=== PATIENT | female | born 1945 | race African-American/Black ===

== ENCOUNTER 2021-11-21 07:30 | Inpatient (IN) ==
--- NOTE | 2021-11-19 15:58 | RAD ---
HISTORYPreopSTUDYChest PA and lateral [id number] appearance of moderate cardiomegaly with aortic dilatation. A focal aneurysm is not identified. The lungs and pleural spaces remain clear. There is no evidence for pneumonia.IMPRESSIONCardiomegaly with significant aortic ectasia suggesting hypertension. No acute findings.Electronically signed by: WILLIAM DARDEN (Nov 19, 2021 15:56:49)
[2021-11-21] MEDS ORDERED: NS 100 ML IV 100 ML ONE (08:34)
[2021-11-21] MEDS ORDERED: LR 1,000 ML IV 1,000 ML IV ONE ×2 (08:34→13:51)
[2021-11-21] MEDS ORDERED: CATAPRES TAB 0.1 MG ONE ×2 (08:45→09:22)
[2021-11-21 09:21] VITALS: BMI 32.1
[2021-11-21 09:27] LABS: BASOPHILS # (AUTO) 0.1 X10^3/uL (0.0-0.1); BASOPHILS % (AUTO) 0.8 % (0.2-1.0); EOSINOPHILS # (AUTO) 0.4 x10^3/uL (0.0-0.2); EOSINOPHILS % (AUTO) 5.4 % (0.9-2.9); HEMATOCRIT 30.7 % (36.0-47.0); HEMOGLOBIN 9.9 g/dL (12.0-16.0); LYMPHOCYTES # (AUTO) 1.7 X10^3/uL (1.3-2.9); LYMPHOCYTES % (AUTO) 26.1 % (21.0-51.0); MEAN CORPUSCULAR HEMOGLOBIN 25.7 pg (27.0-34.0); MEAN CORPUSCULAR HGB CONC 32.3 g/dL (33.0-35.0); MEAN CORPUSCULAR VOLUME 79.6 fL (80.0-100.0); MEAN PLATELET VOLUME 9.7 fL (7.4-11.0); MONOCYTES # (AUTO) 0.8 x10^3/uL (0.3-0.8); MONOCYTES % (AUTO) 12.1 % (0.0-13.0); NEUTROPHILS # (AUTO) 3.6 x10^3/uL (2.2-4.8); NEUTROPHILS % (AUTO) 55.6 % (42.0-75.0); RED BLOOD COUNT 3.86 X10^6/uL (3.5-5.4); RED CELL DISTRIBUTION WIDTH 16.1 % (11.6-16.5); WHITE BLOOD COUNT 6.5 X10^3/uL (3.6-10.0)
[2021-11-21 09:43] LABS: ALANINE AMINOTRANSFERASE 28 Units/L (12-78); ALBUMIN 3.2 g/dL (3.4-5.0); ALKALINE PHOSPHATASE 146 Units/L (46-116); ASPARTATE AMINO TRANSFERASE 33 Units/L (15-37); BLOOD UREA NITROGEN 41 mg/dL (7-18); CALCIUM 8.8 mg/dL (8.5-10.1); CARBON DIOXIDE 21.9 mmol/L (21-32); CHLORIDE 111 mmol/L (98-107); COR CA(FOR HYPOALB) 9.4 mg/dL (8.5-10.1); CREATININE 2.47 mg/dL (0.55-1.02); SODIUM 142 mmol/L (136-145); TOTAL PROTEIN 6.9 g/dL (6.4-8.2); eGFR NON BLACK RACES 20 (>60)
[2021-11-21] MEDS ORDERED: NS 500 ML IV 500 ML IV ONE ×2 (10:00→11:28)
[2021-11-21] MEDS ORDERED: XYLOCAINE 1 % (PLAIN) ONE (10:08)
[2021-11-21] MEDS ORDERED: AMIDATE INJ 40 MG VIAL ONE (10:54)
[2021-11-21] MEDS ORDERED: FENTANYL VIAL INJ 100 mcg ONE (10:59)
[2021-11-21] MEDS ORDERED: QUELICIN (OR ANECTINE) ONE (11:01)
[2021-11-21] MEDS ORDERED: ZEMURON 100 MG VIAL ONE (11:02)
[2021-11-21] MEDS ORDERED: NEO-SYNEPHRINE INJ ONE (11:03)
[2021-11-21] MEDS ORDERED: APRESOLINE INJ 20 MG VIAL ONE ×2 (11:20)
[2021-11-21] MEDS ORDERED: MARCAINE 0.5% ONE (12:09)
[2021-11-21] MEDS ORDERED: HEPARIN SODIUM IN D5W 75,000 UNITS/1,500 ML BAG ONE (12:09)
[2021-11-21] MEDS ORDERED: ULTANE GAS IN ONE (12:19)
[2021-11-21] MEDS ORDERED: BREVIBLOC ONE (13:27)
[2021-11-21] MEDS ORDERED: HEPARIN SODIUM INJ 5000 UNITS ONE ×2 (13:33→13:34)
[2021-11-21] MEDS ORDERED: PROTAMINE SULFATE 50 MG VIAL ONE (13:34)
--- NOTE | 2021-11-21 15:17 | OR.IMMED ---
IMMEDIATE POST-OP NOTE Immediate Post-Op Note Pre-Op Diagnosis: Abdominal aortic aneurysm, bilateral common iliac artery aneur ysms Post-Op Diagnosis: same Procedure: bilateral femoral artery cut down and endovascular bi-iliac graft placement Description of Procedure: see operative summary Surgeon/[employer] Teacher: Jailyn Findings: abdominal aortic aneurysm was larger than 5 cm which is markedly change from previous studies ,bilateral common iliac artery aneurysm Estimated Blood Loss: 300 cc Complications: none Post Hospital Plans and Medications: Patient will be placed in the ICU for control of blood pressure, control of pain and monitoring of the groin incisions. Final Diagnosis: as above
[2021-11-21] MEDS ORDERED: BARHEMSYS INJ IVP PRN (15:22)
[2021-11-21] MEDS ORDERED: REGLAN INJ 10 MG VIAL IVP PRN (15:22)
[2021-11-21] MEDS ORDERED: PHENERGAN INJ 25 MG IM PRN (15:22)
[2021-11-21] MEDS ORDERED: ZOFRAN INJ 4 MG VIAL IVP PRN (15:22)
[2021-11-21] MEDS ORDERED: BENADRYL INJ 50 MG VIAL IVP PRN (15:22)
[2021-11-21] MEDS ORDERED: DILAUDID INJ IVP PRN (15:22)
[2021-11-21] MEDS ORDERED: DILAUDID INJ ONE (15:34)
[2021-11-21] MEDS: LR 1,000 ML IV 1,000 ML IV SCH (16:44)
[2021-11-21] MEDS: DILAUDID INJ IVP PRN ×2 (17:25→21:08)
[2021-11-21 19:44] LABS: BASOPHILS # (AUTO) 0.1 X10^3/uL (0.0-0.1); BASOPHILS % (AUTO) 0.5 % (0.2-1.0); EOSINOPHILS # (AUTO) 0.2 x10^3/uL (0.0-0.2); EOSINOPHILS % (AUTO) 1.8 % (0.9-2.9); HEMOGLOBIN 9.7 g/dL (12.0-16.0); LYMPHOCYTES # (AUTO) 1.6 X10^3/uL (1.3-2.9); LYMPHOCYTES % (AUTO) 12.6 % (21.0-51.0); MEAN CORPUSCULAR HEMOGLOBIN 25.2 pg (27.0-34.0); MEAN CORPUSCULAR HGB CONC 31.5 g/dL (33.0-35.0); MEAN CORPUSCULAR VOLUME 80.3 fL (80.0-100.0); MEAN PLATELET VOLUME 9.4 fL (7.4-11.0); MONOCYTES % (AUTO) 8.1 % (0.0-13.0); RED BLOOD COUNT 3.86 X10^6/uL (3.5-5.4); RED CELL DISTRIBUTION WIDTH 16.1 % (11.6-16.5); WHITE BLOOD COUNT 12.9 X10^3/uL (3.6-10.0)
[2021-11-21] MEDS: CARDENE IV PREMIX* 40 MG/200 ML 40 MG/200 ML PIGGYBACK IV PRN (22:00)
--- NOTE | 2021-11-22 00:05 | NOTE.SOAP ---
Soap Note Note for Day of Date of Exam: 11/21/21 Subjective Data Subjective Data: Earlier today underwent endo-vascular repair of abdominal aortic aneurysm and bilateral common iliac artery aneurysms. Patient has done well. She has been hypertensive both pre-op and post-procedure and is currently on a Cardene drip . Objective Data Temperature: 99.1 F Pulse Rate: 64 Respiratory Rate: 15 Blood Pressure: 160/66 O2 Sat by Pulse Oximetry: 100 Objective Data: Awake and alert. Has taken some sips clear liquids. Good urine output. Post- procedure hemoglobin 9.7 and was 9.9 pre-op today. Has elevated creatinine pre- op. Both feet are warm Assessment Assessment: status post endovascular repair of abdominal aortic aneurysm and bilateral common iliac artery aneurysms ,doing well Plan Plan: Continue to wean Cardene drip. Advance to regular diet in the morning. AM labs. Continue IV hydration .
[2021-11-22] MEDS: DILAUDID INJ IVP PRN ×3 (00:08→14:09)
[2021-11-22] MEDS: LR 1,000 ML IV 1,000 ML IV SCH ×4 (00:50→19:16)
[2021-11-22] MEDS: CARDENE IV PREMIX* 40 MG/200 ML 40 MG/200 ML PIGGYBACK IV PRN (03:55)
[2021-11-22 06:25] LABS: BASOPHILS % (AUTO) 0.3 % (0.2-1.0); EOSINOPHILS # (AUTO) 0.1 x10^3/uL (0.0-0.2); EOSINOPHILS % (AUTO) 0.5 % (0.9-2.9); HEMATOCRIT 27.4 % (36.0-47.0); HEMOGLOBIN 8.6 g/dL (12.0-16.0); LYMPHOCYTES % (AUTO) 6.9 % (21.0-51.0); MEAN CORPUSCULAR HGB CONC 31.3 g/dL (33.0-35.0); MEAN CORPUSCULAR VOLUME 79.9 fL (80.0-100.0); MEAN PLATELET VOLUME 9.1 fL (7.4-11.0); MONOCYTES # (AUTO) 1.3 x10^3/uL (0.3-0.8); MONOCYTES % (AUTO) 9.5 % (0.0-13.0); NEUTROPHILS # (AUTO) 11.5 x10^3/uL (2.2-4.8); NEUTROPHILS % (AUTO) 82.8 % (42.0-75.0); RED BLOOD COUNT 3.42 X10^6/uL (3.5-5.4); WHITE BLOOD COUNT 13.9 X10^3/uL (3.6-10.0)
[2021-11-22 06:37] LABS: ALANINE AMINOTRANSFERASE 25 Units/L (12-78); ALBUMIN 2.8 g/dL (3.4-5.0); ALKALINE PHOSPHATASE 128 Units/L (46-116); ASPARTATE AMINO TRANSFERASE 50 Units/L (15-37); BLOOD UREA NITROGEN 47 mg/dL (7-18); CALCIUM 8.4 mg/dL (8.5-10.1); CHLORIDE 111 mmol/L (98-107); COR CA(FOR HYPOALB) 9.4 mg/dL (8.5-10.1); CREATININE 3.25 mg/dL (0.55-1.02); SODIUM 140 mmol/L (136-145); TOTAL PROTEIN 6.1 g/dL (6.4-8.2); eGFR NON BLACK RACES 15 (>60)
[2021-11-22] MEDS ORDERED: COREG TAB 12.5 MG PO SCH (09:00)
[2021-11-22] MEDS ORDERED: LASIX IVP SCH (09:00)
[2021-11-22] MEDS ORDERED: LOPRESSOR TAB 50 MG PO SCH (09:00)
[2021-11-22] MEDS ORDERED: ALDACTONE TAB 25 MG PO SCH (09:00)
[2021-11-22] MEDS: NORMODYNE TAB 200 MG PO SCH ×3 (09:28→21:18)
[2021-11-22] MEDS: PERCOCET TAB 5/325 MG PO PRN ×2 (09:49→21:00)
--- NOTE | 2021-11-22 17:03 | DR.OPNOTE ---
OP NOTE Pre-Op Diagnosis: 5 cm AAA, 3 cm left iliac artery aneurysm, 2.3 cmright iliac artery aneurys Post-Op Diagnosis: same Procedure Date Date Of Procedure: 11/21/21 Procedure: PROCEDURE: ENDOVASCULAR AORTO-BIILIAC ENDOGRADFT REPAIR OF ABDOMINAL AORTIC ANEURYSM AND BILATERAL COMMON ILIAC ARTERY ANEURYSMS NARRATIVE : The patient was taken to the operative Suite, placed in supine position and general endotracheal anesthesia induced. The entire abdomen and both groins prepped and draped in sterile fashion. Time out for the procedure obtained. Vertical incision was made in the right groin and sharp dissection performed to expose the common femoral artery, superficial femoral artery and the profunda femoris artery of the right groin .Vessel loops placed around all these arteries On placing the right angle clamp around the right profunda a small tear occurred required suture repair with running 5-0 Prolene suture . There was no further bleeding. Vertical incision made in the left groin and sharp dissection carried out to expose the common femoral artery, superficial femoral artery and profunda femoris artery . All had vessel loops placed around them. Purse string sutures of 5-0 Prolene sutures placed in both common femoral arteries. 16 gauge needle used to puncture the right femoral artery through the purse string and a 0. 035 inch Advantage glide wire placed. 16 gauge needle use to puncture in the middle of the purse string suture of the left femoral artery and a 0. 035 inch Advantage glide wire placed. Patient was given 5,000 units of intravenous heparin. On the left side we placed an Omni catheter over the guide wire and diagnostic aortogram performed showing the aneurysm to have increased in size and was approximately 5 cm in diameter and with significant bilateral common iliac artery aneurysms. On the right side the Advantage glide wire exchanged for 0. 035 inch Amplatz stiff wire. The Advantage glide wire on the right was exchanged for a 0.035 inch Amplatz wire using the [employer] catheter and the body of the aortic bifurcated aortic graft measuring 28 by 14 by 103 mm placed over the right Amplatz wire and positioned below the renal arteries and above the neck of the aneurysm just below both renal arteries. The main body was positioned and then opened and deployed. From the left side I placed an Apt[employer]ing[employer] Roofer device and used it and the Amplatz wire to capture the [place] of the left side. I placed the Omni catheter over the guide wire into the body of the aortic graft and pulled back on the wire and was able to twirl the Omni catheter confirming that we were indeed inside the aortic graft main body . Over the Amplatz guide wire on the left side we then placed a 16 mm by 24 mm by 124 mmgraft limb extension and deployed with overlap through the gate on left side. On the right side we placed a contra limb measuring 16 mm by 10 mm by 156 mm limb extension and also deployed it. Diagnostic arteriogram had been carried out of both iliac arteries confirming the extent of the common iliac artery aneurysms. When this was done we placed a balloon up on the left side and performed balloon dilation of the main body of the aortic graft and the left limb . We then placed the balloon up on the right side and ballooned open the right limb of the graft . Post procedure aortogram performed using the Omni catheter above the graft showed excellent result with no leak and good flow into the iliac vessels. A 12 [place] sheath had been placed upon the right side after deploying the limb extension and a 16 [place] sheath had been placed on the right side after deploying the main body of the graft . Patient required no reversal of the heparin .Devices through the sheaths were removed bilaterally . Sheath on the right side removed and the common femoral artery clamped with a Statinsky clamp and the purse string suture tied down and small leak closed additionally with running 5-0 Prolene stopping any bleeding. Identically on the left side the sheath removed and the purse string tied in to position and 5-0 Prolene used to control any other bleeding .No further bleeding noted from either groin . Both groins closed with running 3-0 Vicryl suture in two layers and skin closed with cydney. The patient tolerated he procedure well and was taken to the recovery room after extubation. Type of Anesthesia: General Anesthetic w/ETT Findings: As above , persistent hypertension requiring treatment post -op with IV Cardene Specimen/Pathology: none Type of Fluids Used:: Lactated Ringers Total Amount of Fluid Infused:: 1450 CC EBL: 300 cc Complications:: none Needle/Sponge Count:: correct Disposition/Condition: Pt. tolerated procedure without difficulty. Extubated in the OR and taken to PACU in stable condition.
[2021-11-22] MEDS: REQUIP PO SCH (20:43)
[2021-11-22] MEDS: XARELTO PO SCH (20:43)
[2021-11-22] MEDS: ZOFRAN INJ 4 MG VIAL IVP PRN (22:30)
[2021-11-22] MEDS ORDERED: ZOFRAN INJ 4 MG VIAL ONE (22:33)
--- NOTE | 2021-11-22 23:39 | NOTE.SOAP ---
Soap Note Note for Day of Date of Exam: 11/22/21 Subjective Data Subjective Data: POD # 1 after endovascular repair of AAA and b/l common iliac artery aneurysms. Has required Cardene drip to control BP now weaned off. Her family does not think she is taking her BP medications correctly. Good urine output. C/O pain in groins as expected. Creatinine has risen> 3 , and Hgb = 8.6 this AM. Had some nausea this AM which is resolved. Objective Data Temperature: 100 F Pulse Rate: 75 Respiratory Rate: 22 Blood Pressure: 160/69 Objective Data: Warm feet b/l. Groins dressings dry with no swelling. labsa as above Assessment Assessment: S/p endovascular repair of AAA and b/l iliac artery aneurysms. BP under better control. Will continue po medications . Monitor Hgb. Monitor creatinine. Hold diuretics for now . Tolerating diet after some initial nausea. Plan Plan: As above. Leave Hannah in place for now .
[2021-11-23] MEDS: CATAPRES TAB 0.1 MG PO PRN ×2 (00:12→20:49)
[2021-11-23] MEDS: LR 1,000 ML IV 1,000 ML IV SCH (01:37)
[2021-11-23] MEDS: DILAUDID INJ IVP PRN (02:00)
[2021-11-23 05:05] LABS: BLOOD UREA NITROGEN 57 mg/dL (7-18); CALCIUM 8.6 mg/dL (8.5-10.1); CARBON DIOXIDE 19.9 mmol/L (21-32); CHLORIDE 109 mmol/L (98-107); CREATININE 3.81 mg/dL (0.55-1.02); SODIUM 140 mmol/L (136-145); eGFR NON BLACK RACES 12 (>60)
[2021-11-23 05:09] LABS: BASOPHILS # (AUTO) 0.1 X10^3/uL (0.0-0.1); BASOPHILS % (AUTO) 0.4 % (0.2-1.0); EOSINOPHILS # (AUTO) 0.1 x10^3/uL (0.0-0.2); EOSINOPHILS % (AUTO) 0.5 % (0.9-2.9); HEMATOCRIT 25.8 % (36.0-47.0); HEMOGLOBIN 8.3 g/dL (12.0-16.0); LYMPHOCYTES # (AUTO) 1.2 X10^3/uL (1.3-2.9); LYMPHOCYTES % (AUTO) 6.6 % (21.0-51.0); MEAN CORPUSCULAR HEMOGLOBIN 25.3 pg (27.0-34.0); MEAN CORPUSCULAR HGB CONC 32.1 g/dL (33.0-35.0); MEAN CORPUSCULAR VOLUME 78.9 fL (80.0-100.0); MEAN PLATELET VOLUME 9.3 fL (7.4-11.0); MONOCYTES # (AUTO) 1.8 x10^3/uL (0.3-0.8); MONOCYTES % (AUTO) 9.8 % (0.0-13.0); NEUTROPHILS # (AUTO) 14.8 x10^3/uL (2.2-4.8); NEUTROPHILS % (AUTO) 82.7 % (42.0-75.0); RED BLOOD COUNT 3.27 X10^6/uL (3.5-5.4); RED CELL DISTRIBUTION WIDTH 16.1 % (11.6-16.5); WHITE BLOOD COUNT 17.9 X10^3/uL (3.6-10.0)
[2021-11-23 06:09] LABS: BAND NEUTROPHILS % 2 % (0-10); PLATELET MORPHOLOGY COMMENT NORMAL (NORMAL)
[2021-11-23 06:10] LABS: HYPOCHROMASIA SLIGHT; MICROCYTOSIS SLIGHT
[2021-11-23] MEDS: NORMODYNE TAB 200 MG PO SCH ×3 (06:25→21:27)
[2021-11-23] MEDS: ASPIRIN EC 81 MG PO SCH (09:11)
[2021-11-23] MEDS: XARELTO PO SCH ×2 (09:11→20:50)
[2021-11-23] MEDS: NS 1,000 ML IV 1,000 ML IV SCH (09:11)
[2021-11-23] MEDS: REQUIP PO SCH (20:50)
[2021-11-23] MEDS: PERCOCET TAB 5/325 MG PO PRN (21:30)
[2021-11-23] MEDS: ZOFRAN INJ 4 MG VIAL IVP PRN (21:31)
[2021-11-24] MEDS: NS 1,000 ML IV 1,000 ML IV SCH ×3 (02:03→21:37)
[2021-11-24 05:09] LABS: ALANINE AMINOTRANSFERASE 28 Units/L (12-78); ALBUMIN 2.1 g/dL (3.4-5.0); ALKALINE PHOSPHATASE 104 Units/L (46-116); ASPARTATE AMINO TRANSFERASE 44 Units/L (15-37); BLOOD UREA NITROGEN 63 mg/dL (7-18); CALCIUM 8.2 mg/dL (8.5-10.1); CARBON DIOXIDE 19.8 mmol/L (21-32); CHLORIDE 110 mmol/L (98-107); COR CA(FOR HYPOALB) 9.7 mg/dL (8.5-10.1); CREATININE 3.98 mg/dL (0.55-1.02); SODIUM 139 mmol/L (136-145); TOTAL PROTEIN 5.5 g/dL (6.4-8.2); eGFR NON BLACK RACES 12 (>60)
[2021-11-24 05:12] LABS: BASOPHILS % (AUTO) 0.4 % (0.2-1.0); EOSINOPHILS # (AUTO) 0.2 x10^3/uL (0.0-0.2); EOSINOPHILS % (AUTO) 1.5 % (0.9-2.9); HEMATOCRIT 22.5 % (36.0-47.0); HEMOGLOBIN 7.2 g/dL (12.0-16.0); LYMPHOCYTES # (AUTO) 1.3 X10^3/uL (1.3-2.9); LYMPHOCYTES % (AUTO) 10.2 % (21.0-51.0); MEAN CORPUSCULAR HEMOGLOBIN 25.3 pg (27.0-34.0); MEAN CORPUSCULAR HGB CONC 32.1 g/dL (33.0-35.0); MEAN CORPUSCULAR VOLUME 78.7 fL (80.0-100.0); MEAN PLATELET VOLUME 9.3 fL (7.4-11.0); MONOCYTES # (AUTO) 1.2 x10^3/uL (0.3-0.8); MONOCYTES % (AUTO) 9.2 % (0.0-13.0); NEUTROPHILS % (AUTO) 78.7 % (42.0-75.0); RED BLOOD COUNT 2.86 X10^6/uL (3.5-5.4); WHITE BLOOD COUNT 12.7 X10^3/uL (3.6-10.0)
[2021-11-24] MEDS: NORMODYNE TAB 200 MG PO SCH ×3 (05:40→21:23)
[2021-11-24] MEDS: ASPIRIN EC 81 MG PO SCH (08:51)
[2021-11-24] MEDS: XARELTO PO SCH ×2 (08:52→20:54)
[2021-11-24] MEDS: DILAUDID INJ IVP PRN ×2 (09:03→14:13)
[2021-11-24] MEDS ORDERED: NS 500 ML IV 500 ML IV ONE (10:46)
--- NOTE | 2021-11-24 12:27 | NOTE.SOAP ---
Soap Note Note for Day of Date of Exam: 11/23/21 Subjective Data Subjective Data: Patient seen twice by me yesterday but no note written. Patient doing better. She was to begin physical therapy to help with a walker but they were not available. Objective Data Temperature: 99.3 F Pulse Rate: 80 Respiratory Rate: 18 Blood Pressure: 141/61 O2 Sat by Pulse Oximetry: 97 Objective Data: Both feet warm. Dressings in each groin intact with no blood staining or hematoma.Acid urine output abdomen soft and benign. White blood cell count 17. 9, platlet count 139,000, hemoglobin 8. 3 , potassium 5. 6, creatinine3.83, BUN 57 Assessment Assessment: continues to do well after endovascular repair of abdominal aortic aneurysm and bilateral iliac srtery aneurysms . Creatinine has risen but appears to be plateauing and with good urine output. This will need to be followed. She is followed by a promotional advertising assistant regularly. Her blood pressure remains elevated and we will need to treat that with her usual home medications. Check labs in the A. M. If stable may discharge . Plan Plan: See assessment above
--- NOTE | 2021-11-24 15:38 | NOTE.SOAP ---
Soap Note Note for Day of Date of Exam: 11/24/21 Subjective Data Subjective Data: POD # 3 after endovascular repair of AAA and bilateral iliac artery aneurysms. Much more active. Participating well with PT. Using walker well. HgB decreased to 7.2 Will plan transfusion of 2 units PRBCs . Still with adequate urine output and creatinine has nearly peaked . Bp still elevated intermittently. Eating better. Objective Data Temperature: 100.0 F Pulse Rate: 80 Respiratory Rate: 21 Blood Pressure: 159/68 O2 Sat by Pulse Oximetry: 96 Objective Data: As above , Incisions both groins clean and dry. Both feet warm. Assessment Assessment: POD # 3 after surgery, Plan Plan: Plan transfusion 2 units PRBCs, D/C Hannah. Labs in AM . Probably home tomorrow. Will see in office 1st of next week and check labs. If creatinine not coming back will refer to her thermostatic controls supervisor , Dr. Castillo.
[2021-11-24] MEDS ORDERED: BENADRYL INJ 50 MG VIAL IVP ONE (19:30)
[2021-11-24 19:36] LABS: HEMATOCRIT 29.5 % (36.0-47.0); HEMOGLOBIN 9.9 g/dL (12.0-16.0)
[2021-11-24] MEDS: ZOFRAN INJ 4 MG VIAL IVP PRN (20:20)
[2021-11-24] MEDS: PERCOCET TAB 5/325 MG PO PRN (20:20)
[2021-11-24] MEDS: REQUIP PO SCH (20:54)
[2021-11-24] MEDS ORDERED: VISTARIL PO PRN (22:07)
[2021-11-24] MEDS: LR 1,000 ML IV 1,000 ML IV SCH (22:50)
[2021-11-25] MEDS: NS 1,000 ML IV 1,000 ML IV SCH (00:15)
[2021-11-25] MEDS: PERCOCET TAB 5/325 MG PO PRN ×3 (00:18→09:11)
[2021-11-25] MEDS ORDERED: BENADRYL CAP/TAB 25 MG PO PRN (01:30)
[2021-11-25] MEDS: NORMODYNE TAB 200 MG PO SCH (05:20)
[2021-11-25 05:56] LABS: BASOPHILS # (AUTO) 0.1 X10^3/uL (0.0-0.1); BASOPHILS % (AUTO) 0.5 % (0.2-1.0); EOSINOPHILS # (AUTO) 0.4 x10^3/uL (0.0-0.2); EOSINOPHILS % (AUTO) 3.9 % (0.9-2.9); HEMATOCRIT 30.4 % (36.0-47.0); HEMOGLOBIN 10.1 g/dL (12.0-16.0); LYMPHOCYTES # (AUTO) 1.4 X10^3/uL (1.3-2.9); LYMPHOCYTES % (AUTO) 12.2 % (21.0-51.0); MEAN CORPUSCULAR HEMOGLOBIN 26.6 pg (27.0-34.0); MEAN CORPUSCULAR HGB CONC 33.3 g/dL (33.0-35.0); MEAN CORPUSCULAR VOLUME 79.9 fL (80.0-100.0); MEAN PLATELET VOLUME 9.2 fL (7.4-11.0); MONOCYTES # (AUTO) 1.3 x10^3/uL (0.3-0.8); NEUTROPHILS % (AUTO) 71.4 % (42.0-75.0); RED CELL DISTRIBUTION WIDTH 15.6 % (11.6-16.5); WHITE BLOOD COUNT 11.2 X10^3/uL (3.6-10.0)
[2021-11-25 06:03] LABS: BLOOD UREA NITROGEN 64 mg/dL (7-18); CALCIUM 8.4 mg/dL (8.5-10.1); CARBON DIOXIDE 20.2 mmol/L (21-32); CHLORIDE 110 mmol/L (98-107); CREATININE 3.74 mg/dL (0.55-1.02); SODIUM 139 mmol/L (136-145); eGFR NON BLACK RACES 13 (>60)
[2021-11-25] MEDS ORDERED: MILK OF MAGNESIA PO SCH (09:00)
[2021-11-25] MEDS: XARELTO PO SCH (09:11)
[2021-11-25] MEDS: ASPIRIN EC 81 MG PO SCH (09:11)
[2021-11-25 09:30] VITALS: BP 162/71
--- NOTE | 2021-11-25 10:45 | W.DIS.FURT ---
Summary of Discharge Discharge Summary of Date Date of Exam: 11/25/21 Admission Date Date of Admission: 11/21/21 Admission Diagnosis Hospital Course: 76 year old female with history of coronary artery disease who has had a bilateral peripheral artery interventions of both lower extremities for rest pain and she was noted to have a 4. 4 CM abdominal aortic aneurysm, 3. 1 CM left common iliac artery aneurysm and 2. 3 CM right common iliac artery aneurysm. After evaluation of her coronary artery disease and arterial intervention of both legs she was admitted on November 21 where she underwent an uncomplicated aorta bi-iliac endovascular repair via incisions in each groin . She has a history of hypertension which has been difficult to control and has had borderline renal function in the past. Post-procedure her creatinine increased to 3. 9 but it is coming down with re-hydration and is now 3.7. Other chemistries are within normal limits. Her hemoglobin dropped post- procedure slowly over several days to 7. 2 No obvious signs of bleeding .She received 2 units of packed RBCs and her Hgb is 10.1 on discharge. She has been getting around with a walker and has been instructed with physical therapy. She will be discharged to home and follow up with me on November 29. At that time we will repeat laboratory values to evaluate her kidneys and her hemoglobin. She be discharged home on her usual medications including Plavix, her blood pressure medicines, daily baby aspirin and Percocet 5 mg tablets, one every six hours pure in pain. Vital Signs: Vital Signs (72 hours) 11/22/21 23:39 11/24/21 12:32 11/24/21 15:38 Temperature 100 F H 99.3 F 100.0 F H Pulse Rate 75 80 80 Respiratory Rate 22 18 21 Blood Pressure 160/69 141/61 159/68 O2 Sat by Pulse Oximetry 97 96 Oxygen Delivery Method Oxygen Flow Rate FIO2% 11/22/21 10:48 11/22/21 11:00 11/22/21 11:00 Temperature Pulse Rate 85 Respiratory Rate 22 16 Blood Pressure 157/69 O2 Sat by Pulse Oximetry 98 Oxygen Delivery Method Oxygen Flow Rate FIO2% 11/22/21 12:15 11/22/21 12:15 11/22/21 13:00 Temperature 98.7 F Pulse Rate 84 Respiratory Rate 20 Blood Pressure 180/78 170/74 O2 Sat by Pulse Oximetry 98 Oxygen Delivery Method Oxygen Flow Rate FIO2% 11/22/21 13:00 11/22/21 14:09 11/22/21 13:30 Temperature Pulse Rate 86 Respiratory Rate 23 19 Blood Pressure 165/73 O2 Sat by Pulse Oximetry 99 Oxygen Delivery Method Oxygen Flow Rate FIO2% 11/22/21 13:30 11/22/21 14:15 11/22/21 14:15 Temperature Pulse Rate 84 71 Respiratory Rate 21 15 Blood Pressure 137/63 O2 Sat by Pulse Oximetry 99 99 Oxygen Delivery Method Oxygen Flow Rate FIO2% 11/22/21 14:39 11/22/21 15:00 11/22/21 15:00 Temperature Pulse Rate 72 Respiratory Rate 22 24 Blood Pressure 144/65 O2 Sat by Pulse Oximetry 99 Oxygen Delivery Method Oxygen Flow Rate FIO2% 11/22/21 16:00 11/22/21 16:00 11/22/21 17:00 Temperature 98.5 F Pulse Rate 74 Respiratory Rate 23 Blood Pressure 158/72 187/79 O2 Sat by Pulse Oximetry 100 Oxygen Delivery Method Oxygen Flow Rate FIO2% 11/22/21 17:00 11/22/21 18:00 11/22/21 18:00 Temperature Pulse Rate 78 79 Respiratory Rate 35 H 21 Blood Pressure 181/77 O2 Sat by Pulse Oximetry 100 100 Oxygen Delivery Method Oxygen Flow Rate FIO2% 11/22/21 19:00 11/22/21 20:00 11/22/21 19:00 Temperature 100.0 F H Pulse Rate 75 79 Respiratory Rate 22 29 H Blood Pressure 173/73 173/71 O2 Sat by Pulse Oximetry 100 100 Oxygen Delivery Method Nasal Cannula Nasal Cannula Nasal Cannula Oxygen Flow Rate 2 2 2 FIO2% 11/22/21 21:00 11/22/21 21:13 11/22/21 21:00 Temperature Pulse Rate 80 Respiratory Rate 29 H 22 Blood Pressure 174/76 O2 Sat by Pulse Oximetry 99 Oxygen Delivery Method Nasal Cannula Nasal Cannula Oxygen Flow Rate 2 2 FIO2% 28 11/22/21 22:00 11/22/21 21:30 11/22/21 22:00 Temperature Pulse Rate 77 75 Respiratory Rate 21 23 22 Blood Pressure 168/71 163/71 O2 Sat by Pulse Oximetry 100 100 Oxygen Delivery Method Nasal Cannula Nasal Cannula Oxygen Flow Rate 2 2 FIO2% 11/22/21 22:30 11/22/21 23:00 11/23/21 00:00 Temperature 100.0 F H Pulse Rate 75 82 Respiratory Rate 28 H 22 Blood Pressure 158/65 160/69 177/74 O2 Sat by Pulse Oximetry 97 97 Oxygen Delivery Method Room Air Room Air Oxygen Flow Rate FIO2% 11/23/21 00:30 11/23/21 02:00 11/23/21 01:00 Temperature Pulse Rate 81 Respiratory Rate 20 20 Blood Pressure 167/74 185/75 O2 Sat by Pulse Oximetry 97 Oxygen Delivery Method Room Air Oxygen Flow Rate FIO2% 11/23/21 02:00 11/23/21 02:30 11/23/21 03:00 Temperature Pulse Rate 77 78 Respiratory Rate 20 20 17 Blood Pressure 157/67 162/70 O2 Sat by Pulse Oximetry 97 97 Oxygen Delivery Method Room Air Room Air Oxygen Flow Rate FIO2% 11/23/21 04:00 11/23/21 05:00 11/23/21 05:34 Temperature 99.9 F H Pulse Rate 79 76 Respiratory Rate 17 19 Blood Pressure 179/76 168/67 166/69 O2 Sat by Pulse Oximetry 97 97 Oxygen Delivery Method Room Air Room Air Oxygen Flow Rate FIO2% 11/23/21 06:00 11/23/21 07:00 11/23/21 07:00 Temperature Pulse Rate 81 Respiratory Rate 19 Blood Pressure 141/61 174/70 O2 Sat by Pulse Oximetry 96 Oxygen Delivery Method Room Air Nasal Cannula Oxygen Flow Rate 2 FIO2% 11/23/21 07:00 11/23/21 08:00 11/23/21 08:00 Temperature 99.3 F Pulse Rate 80 88 Respiratory Rate 18 26 H Blood Pressure 156/117 O2 Sat by Pulse Oximetry 97 97 Oxygen Delivery Method Oxygen Flow Rate FIO2% 11/23/21 08:30 11/23/21 08:31 11/23/21 08:31 Temperature Pulse Rate 73 72 Respiratory Rate 19 19 Blood Pressure 106/53 O2 Sat by Pulse Oximetry 97 97 Oxygen Delivery Method Oxygen Flow Rate FIO2% 11/23/21 09:00 11/23/21 09:00 11/23/21 09:34 Temperature Pulse Rate 71 Respiratory Rate 19 Blood Pressure 127/57 O2 Sat by Pulse Oximetry 97 Oxygen Delivery Method Room Air Oxygen Flow Rate 2 FIO2% 28 11/23/21 10:00 11/23/21 10:00 11/23/21 11:01 Temperature Pulse Rate 73 Respiratory Rate 19 Blood Pressure 133/55 139/60 O2 Sat by Pulse Oximetry 98 Oxygen Delivery Method Oxygen Flow Rate FIO2% 11/23/21 11:01 11/23/21 12:00 11/23/21 12:01 Temperature 99.7 F H Pulse Rate 76 77 Respiratory Rate 23 22 Blood Pressure 158/69 O2 Sat by Pulse Oximetry 97 98 Oxygen Delivery Method Oxygen Flow Rate FIO2% 11/23/21 13:01 11/23/21 13:01 11/23/21 14:01 Temperature Pulse Rate 79 Respiratory Rate 23 Blood Pressure 156/65 145/65 O2 Sat by Pulse Oximetry 98 Oxygen Delivery Method Oxygen Flow Rate FIO2% 11/23/21 14:01 11/23/21 15:00 11/23/21 15:00 Temperature Pulse Rate 78 75 Respiratory Rate 24 21 Blood Pressure 139/59 O2 Sat by Pulse Oximetry 97 97 Oxygen Delivery Method Oxygen Flow Rate FIO2% 11/23/21 16:00 11/23/21 16:01 11/23/21 17:01 Temperature 100.3 F H Pulse Rate 80 Respiratory Rate 31 H Blood Pressure 146/111 122/56 O2 Sat by Pulse Oximetry 97 Oxygen Delivery Method Oxygen Flow Rate FIO2% 11/23/21 17:01 11/23/21 18:01 11/23/21 18:01 Temperature Pulse Rate 78 78 Respiratory Rate 31 H 38 H Blood Pressure 138/62 O2 Sat by Pulse Oximetry 97 98 Oxygen Delivery Method Oxygen Flow Rate FIO2% 11/23/21 21:30 11/23/21 19:00 11/23/21 19:00 Temperature Pulse Rate 80 Respiratory Rate 20 25 H Blood Pressure O2 Sat by Pulse Oximetry 97 Oxygen Delivery Method Nasal Cannula Oxygen Flow Rate 2 FIO2% 11/23/21 19:01 11/23/21 19:01 11/23/21 19:30 Temperature Pulse Rate 79 79 Respiratory Rate 25 H 24 Blood Pressure 155/65 O2 Sat by Pulse Oximetry 98 97 Oxygen Delivery Method Oxygen Flow Rate FIO2% 11/23/21 19:31 11/23/21 19:31 11/23/21 20:00 Temperature 98.0 F Pulse Rate 79 84 Respiratory Rate 24 35 H Blood Pressure 162/70 O2 Sat by Pulse Oximetry 97 97 Oxygen Delivery Method Oxygen Flow Rate FIO2% 11/23/21 20:01 11/23/21 20:01 11/23/21 20:04 Temperature Pulse Rate 84 Respiratory Rate 33 H Blood Pressure 190/72 187/75 O2 Sat by Pulse Oximetry 97 Oxygen Delivery Method Oxygen Flow Rate FIO2% 11/23/21 20:04 11/23/21 20:30 11/23/21 20:30 Temperature Pulse Rate 84 87 Respiratory Rate 34 H 39 H Blood Pressure 199/79 O2 Sat by Pulse Oximetry 97 97 Oxygen Delivery Method Oxygen Flow Rate FIO2% 11/23/21 21:00 11/23/21 21:01 11/23/21 21:01 Temperature Pulse Rate 90 87 Respiratory Rate 38 H 39 H Blood Pressure 223/91 O2 Sat by Pulse Oximetry 96 95 Oxygen Delivery Method Oxygen Flow Rate FIO2% 11/23/21 21:19 11/23/21 21:19 11/23/21 21:30 Temperature Pulse Rate 78 Respiratory Rate Blood Pressure 171/72 158/70 O2 Sat by Pulse Oximetry 98 Oxygen Delivery Method Oxygen Flow Rate FIO2% 11/23/21 21:30 11/23/21 22:00 11/23/21 22:00 Temperature Pulse Rate 79 72 Respiratory Rate 24 Blood Pressure 151/65 O2 Sat by Pulse Oximetry 87 L 98 Oxygen Delivery Method Oxygen Flow Rate FIO2% 11/23/21 21:05 11/24/21 00:11 11/23/21 22:30 Temperature Pulse Rate Respiratory Rate 20 Blood Pressure O2 Sat by Pulse Oximetry Oxygen Delivery Method Nasal Cannula Nasal Cannula Oxygen Flow Rate 2 2 FIO2% 11/23/21 23:30 11/23/21 22:00 11/23/21 22:30 Temperature Pulse Rate 70 Respiratory Rate 20 21 Blood Pressure 151/65 O2 Sat by Pulse Oximetry 98 Oxygen Delivery Method Oxygen Flow Rate FIO2% 11/23/21 22:31 11/23/21 22:31 11/23/21 23:00 Temperature Pulse Rate 69 68 Respiratory Rate 20 20 Blood Pressure 137/58 O2 Sat by Pulse Oximetry 98 97 Oxygen Delivery Method Oxygen Flow Rate FIO2% 11/23/21 23:01 11/23/21 23:01 11/23/21 23:30 Temperature Pulse Rate 67 Respiratory Rate 20 Blood Pressure 127/57 134/60 O2 Sat by Pulse Oximetry 97 Oxygen Delivery Method Oxygen Flow Rate FIO2% 11/23/21 23:30 11/24/21 00:00 11/24/21 00:00 Temperature 98.5 F Pulse Rate 68 73 Respiratory Rate 20 22 Blood Pressure 147/66 O2 Sat by Pulse Oximetry 97 97 Oxygen Delivery Method Oxygen Flow Rate FIO2% 11/24/21 00:30 11/24/21 00:30 11/24/21 01:00 Temperature Pulse Rate 72 Respiratory Rate 17 Blood Pressure 145/66 140/64 O2 Sat by Pulse Oximetry 97 Oxygen Delivery Method Oxygen Flow Rate FIO2% 11/24/21 01:00 11/24/21 01:30 11/24/21 01:30 Temperature Pulse Rate 73 75 Respiratory Rate 17 17 Blood Pressure 155/67 O2 Sat by Pulse Oximetry 97 97 Oxygen Delivery Method Oxygen Flow Rate FIO2% 11/24/21 01:30 11/24/21 02:00 11/24/21 02:00 Temperature Pulse Rate 75 Respiratory Rate 17 Blood Pressure 155/67 168/71 O2 Sat by Pulse Oximetry 98 Oxygen Delivery Method Oxygen Flow Rate FIO2% 11/24/21 02:00 11/24/21 02:00 11/24/21 02:30 Temperature Pulse Rate 75 Respiratory Rate 17 Blood Pressure 168/71 154/97 O2 Sat by Pulse Oximetry 98 Oxygen Delivery Method Oxygen Flow Rate FIO2% 11/24/21 02:30 11/24/21 03:00 11/24/21 03:00 Temperature Pulse Rate 74 74 Respiratory Rate 17 17 Blood Pressure 160/71 O2 Sat by Pulse Oximetry 98 99 Oxygen Delivery Method Oxygen Flow Rate FIO2% 11/24/21 03:30 11/24/21 03:30 11/24/21 04:00 Temperature Pulse Rate 75 78 Respiratory Rate 18 20 Blood Pressure 173/74 O2 Sat by Pulse Oximetry 98 98 Oxygen Delivery Method Oxygen Flow Rate FIO2% 11/24/21 04:01 11/24/21 04:01 11/24/21 04:30 Temperature 98.6 F Pulse Rate 76 78 Respiratory Rate 19 22 Blood Pressure 176/72 O2 Sat by Pulse Oximetry 98 98 Oxygen Delivery Method Oxygen Flow Rate FIO2% 11/24/21 04:31 11/24/21 04:31 11/24/21 05:00 Temperature Pulse Rate 76 Respiratory Rate 21 Blood Pressure 166/72 186/75 O2 Sat by Pulse Oximetry 98 Oxygen Delivery Method Oxygen Flow Rate FIO2% 11/24/21 05:00 11/24/21 05:30 11/24/21 05:31 Temperature Pulse Rate 74 75 74 Respiratory Rate 20 22 22 Blood Pressure O2 Sat by Pulse Oximetry 98 98 98 Oxygen Delivery Method Oxygen Flow Rate FIO2% 11/24/21 05:31 11/24/21 06:00 11/24/21 06:00 Temperature Pulse Rate 75 Respiratory Rate 18 Blood Pressure 170/71 180/73 O2 Sat by Pulse Oximetry 98 Oxygen Delivery Method Oxygen Flow Rate FIO2% 11/24/21 06:30 11/24/21 06:30 11/24/21 09:03 Temperature Pulse Rate 73 Respiratory Rate 18 23 Blood Pressure 168/112 O2 Sat by Pulse Oximetry 97 Oxygen Delivery Method Oxygen Flow Rate FIO2% 11/24/21 07:00 11/24/21 08:00 11/24/21 09:00 Temperature 99.4 F Pulse Rate 73 73 79 Respiratory Rate 19 21 19 Blood Pressure 167/66 166/70 178/72 O2 Sat by Pulse Oximetry 98 97 96 Oxygen Delivery Method Room Air Room Air Room Air Oxygen Flow Rate FIO2% 11/24/21 07:00 11/24/21 10:06 11/24/21 09:33 Temperature Pulse Rate Respiratory Rate 21 Blood Pressure O2 Sat by Pulse Oximetry Oxygen Delivery Method Room Air Nasal Cannula Oxygen Flow Rate 2 FIO2% 11/24/21 10:00 11/24/21 11:00 11/24/21 12:00 Temperature 99.1 F Pulse Rate 83 77 86 Respiratory Rate 22 21 22 Blood Pressure 148/67 163/69 174/71 O2 Sat by Pulse Oximetry 99 99 95 Oxygen Delivery Method Room Air Room Air Room Air Oxygen Flow Rate FIO2% 11/24/21 13:00 11/24/21 14:13 11/24/21 14:00 Temperature Pulse Rate 84 77 Respiratory Rate 24 18 16 Blood Pressure 173/79 155/69 O2 Sat by Pulse Oximetry 97 95 Oxygen Delivery Method Room Air Room Air Oxygen Flow Rate FIO2% 11/24/21 14:43 11/24/21 15:00 11/24/21 16:00 Temperature 100.0 F H 99.6 F Pulse Rate 80 72 Respiratory Rate 18 21 20 Blood Pressure 159/68 171/77 O2 Sat by Pulse Oximetry 96 97 Oxygen Delivery Method Room Air Room Air Oxygen Flow Rate FIO2% 11/24/21 17:00 11/24/21 18:00 11/24/21 20:20 Temperature 99.6 F Pulse Rate 79 81 Respiratory Rate 22 26 H 20 Blood Pressure 165/73 171/72 O2 Sat by Pulse Oximetry 98 98 Oxygen Delivery Method Room Air Room Air Oxygen Flow Rate FIO2% 11/24/21 19:00 11/24/21 19:00 11/24/21 19:01 Temperature Pulse Rate 79 Respiratory Rate 29 H Blood Pressure 177/74 O2 Sat by Pulse Oximetry 97 Oxygen Delivery Method Room Air Oxygen Flow Rate FIO2% 11/24/21 19:01 11/24/21 19:31 11/24/21 19:31 Temperature Pulse Rate 77 80 Respiratory Rate 26 H 29 H Blood Pressure 212/89 O2 Sat by Pulse Oximetry 97 97 Oxygen Delivery Method Oxygen Flow Rate FIO2% 11/24/21 19:38 11/24/21 19:38 11/24/21 19:38 Temperature Pulse Rate 82 Respiratory Rate 31 H Blood Pressure 203/79 203/79 O2 Sat by Pulse Oximetry 96 Oxygen Delivery Method Oxygen Flow Rate FIO2% 11/24/21 20:00 11/24/21 20:22 11/24/21 20:22 Temperature 99.6 F Pulse Rate 80 80 Respiratory Rate 30 H 25 H Blood Pressure 188/81 O2 Sat by Pulse Oximetry 96 96 Oxygen Delivery Method Oxygen Flow Rate FIO2% 11/24/21 20:30 11/24/21 20:30 11/24/21 21:00 Temperature Pulse Rate 77 Respiratory Rate 24 Blood Pressure 185/79 193/73 O2 Sat by Pulse Oximetry 96 Oxygen Delivery Method Oxygen Flow Rate FIO2% 11/24/21 21:00 11/24/21 21:31 11/24/21 21:31 Temperature Pulse Rate 74 80 Respiratory Rate 24 25 H Blood Pressure 190/82 O2 Sat by Pulse Oximetry 98 96 Oxygen Delivery Method Oxygen Flow Rate FIO2% 11/24/21 22:00 11/24/21 22:00 11/24/21 22:09 Temperature Pulse Rate 81 80 Respiratory Rate 28 H 29 H Blood Pressure 208/87 O2 Sat by Pulse Oximetry 96 96 Oxygen Delivery Method Oxygen Flow Rate FIO2% 11/24/21 22:09 11/24/21 22:31 11/24/21 22:31 Temperature Pulse Rate 77 Respiratory Rate 26 H Blood Pressure 195/84 204/78 O2 Sat by Pulse Oximetry 96 Oxygen Delivery Method Oxygen Flow Rate FIO2% 11/24/21 21:20 11/24/21 23:00 11/24/21 23:01 Temperature Pulse Rate 76 75 Respiratory Rate 20 24 22 Blood Pressure O2 Sat by Pulse Oximetry 96 96 Oxygen Delivery Method Oxygen Flow Rate FIO2% 11/24/21 23:01 11/24/21 23:30 11/24/21 23:30 Temperature Pulse Rate 74 Respiratory Rate 26 H Blood Pressure 187/77 201/81 O2 Sat by Pulse Oximetry 98 Oxygen Delivery Method Oxygen Flow Rate FIO2% 11/25/21 00:18 11/25/21 00:01 11/25/21 00:01 Temperature 99.9 F H Pulse Rate 77 Respiratory Rate 20 27 H Blood Pressure 176/74 O2 Sat by Pulse Oximetry 97 Oxygen Delivery Method Oxygen Flow Rate FIO2% 11/25/21 00:30 11/25/21 00:30 11/25/21 01:00 Temperature Pulse Rate 72 Respiratory Rate 22 Blood Pressure 174/69 169/72 O2 Sat by Pulse Oximetry 97 Oxygen Delivery Method Oxygen Flow Rate FIO2% 11/25/21 01:00 11/25/21 01:30 11/25/21 01:30 Temperature Pulse Rate 73 77 Respiratory Rate 21 37 H Blood Pressure 169/71 O2 Sat by Pulse Oximetry 97 96 Oxygen Delivery Method Oxygen Flow Rate FIO2% 11/25/21 02:01 11/25/21 02:01 11/25/21 01:18 Temperature Pulse Rate 71 Respiratory Rate 19 18 Blood Pressure 163/73 O2 Sat by Pulse Oximetry 95 Oxygen Delivery Method Oxygen Flow Rate FIO2% 11/24/21 20:10 11/25/21 05:20 11/25/21 02:31 Temperature Pulse Rate Respiratory Rate 20 Blood Pressure 149/65 O2 Sat by Pulse Oximetry Oxygen Delivery Method Nasal Cannula Oxygen Flow Rate 2 FIO2% 11/25/21 02:31 11/25/21 03:00 11/25/21 03:00 Temperature Pulse Rate 70 70 Respiratory Rate 18 18 Blood Pressure 160/70 O2 Sat by Pulse Oximetry 97 97 Oxygen Delivery Method Oxygen Flow Rate FIO2% 11/25/21 03:30 11/25/21 03:30 11/25/21 04:00 Temperature 98.7 F Pulse Rate 69 69 Respiratory Rate 17 18 Blood Pressure 154/65 O2 Sat by Pulse Oximetry 97 97 Oxygen Delivery Method Oxygen Flow Rate FIO2% 11/25/21 04:01 11/25/21 04:01 11/25/21 04:01 Temperature Pulse Rate 71 Respiratory Rate 18 Blood Pressure 174/66 174/66 O2 Sat by Pulse Oximetry 97 Oxygen Delivery Method Oxygen Flow Rate FIO2% 11/25/21 04:31 11/25/21 04:31 11/25/21 05:00 Temperature Pulse Rate 69 67 Respiratory Rate 18 21 Blood Pressure 161/70 O2 Sat by Pulse Oximetry 96 96 Oxygen Delivery Method Oxygen Flow Rate FIO2% 11/25/21 05:01 11/25/21 05:01 11/25/21 05:31 Temperature Pulse Rate 67 Respiratory Rate 23 Blood Pressure 180/75 179/74 O2 Sat by Pulse Oximetry 96 Oxygen Delivery Method Oxygen Flow Rate FIO2% 11/25/21 05:31 11/25/21 06:00 11/25/21 06:01 Temperature Pulse Rate 64 66 Respiratory Rate 17 16 Blood Pressure 161/65 O2 Sat by Pulse Oximetry 96 97 Oxygen Delivery Method Oxygen Flow Rate FIO2% 11/25/21 06:20 11/25/21 07:00 11/25/21 08:00 Temperature 97.6 F Pulse Rate 63 66 Respiratory Rate 18 20 19 Blood Pressure 141/63 150/83 O2 Sat by Pulse Oximetry 97 100 Oxygen Delivery Method Room Air Room Air Oxygen Flow Rate FIO2% 11/25/21 07:00 11/25/21 08:10 11/25/21 09:11 Temperature Pulse Rate Respiratory Rate 18 Blood Pressure O2 Sat by Pulse Oximetry Oxygen Delivery Method Room Air Room Air Oxygen Flow Rate FIO2% 11/25/21 09:00 Temperature Pulse Rate 61 Respiratory Rate 22 Blood Pressure 162/71 O2 Sat by Pulse Oximetry 100 Oxygen Delivery Method Room Air Oxygen Flow Rate FIO2% Labs: Laboratory Last Values WBC 11.2 X10^3/uL (3.6-10.0) H 11/25/21 05:17 RBC 3.80 X10^6/uL (3.5-5.4) 11/25/21 05:17 Hgb 10.1 g/dL (12.0-16.0) L 11/25/21 05:17 Hct 30.4 % (36.0-47.0) L 11/25/21 05:17 MCV 79.9 fL (80.0-100.0) L 11/25/21 05:17 MCH 26.6 pg (27.0-34.0) L 11/25/21 05:17 MCHC 33.3 g/dL (33.0-35.0) 11/25/21 05:17 RDW 15.6 % (11.6-16.5) 11/25/21 05:17 Plt Count 151 X10^3/uL (150.0-450.0) 11/25/21 05:17 Plt Count Comment Decreased (ADEQUATE) A 11/23/21 04:46 MPV 9.2 fL (7.4-11.0) 11/25/21 05:17 Neut % (Auto) 71.4 % (42.0-75.0) 11/25/21 05:17 Lymph % (Auto) 12.2 % (21.0-51.0) L 11/25/21 05:17 [place] % (Auto) 12.0 % (0.0-13.0) 11/25/21 05:17 Eos % (Auto) 3.9 % (0.9-2.9) H 11/25/21 05:17 Baso % (Auto) 0.5 % (0.2-1.0) 11/25/21 05:17 Neut # (Auto) 8.0 x10^3/uL (2.2-4.8) H 11/25/21 05:17 Lymph # (Auto) 1.4 X10^3/uL (1.3-2.9) 11/25/21 05:17 [place] # (Auto) 1.3 x10^3/uL (0.3-0.8) H 11/25/21 05:17 Eos # (Auto) 0.4 x10^3/uL (0.0-0.2) H 11/25/21 05:17 Baso # (Auto) 0.1 X10^3/uL (0.0-0.1) 11/25/21 05:17 Absolute Nucleated RBC 0.1 /100WBC 11/25/21 05:17 Total Counted 100 11/23/21 04:46 Neutrophils % (Manual) 82 % (39-76) H 11/23/21 04:46 Band Neutrophils % 2 % (0-10) 11/23/21 04:46 Lymphocytes % (Manual) 9 % (13-43) L 11/23/21 04:46 Monocytes % (Manual) 7 % (4-9) 11/23/21 04:46 Plt Morphology Comment Normal (NORMAL) 11/23/21 04:46 RBC Morphology Abnormal (NORMAL) A 11/23/21 04:46 Hypochromasia Slight A 11/23/21 04:46 Microcytosis Slight A 11/23/21 04:46 Sodium 139 mmol/L (136-145) 11/25/21 05:17 Corrected Sodium TNP 11/25/21 05:17 Potassium 5.4 mmol/L (3.5-5.1) H 11/25/21 05:17 Chloride 110 mmol/L (98-107) H 11/25/21 05:17 Carbon Dioxide 20.2 mmol/L (21-32) L 11/25/21 05:17 BUN 64 mg/dL (7-18) H 11/25/21 05:17 Creatinine 3.74 mg/dL (0.55-1.02) H 11/25/21 05:17 Est GFR (MDRD) Af Amer 15 (>60) L 11/25/21 05:17 Est GFR (MDRD) Non-Af 13 (>60) L 11/25/21 05:17 Glucose 99 mg/dL (65-99) 11/25/21 05:17 Calcium 8.4 mg/dL (8.5-10.1) L 11/25/21 05:17 Corrected Calcium 9.7 mg/dL (8.5-10.1) 11/24/21 04:20 Total Bilirubin 0.50 mg/dL (0.2-1.0) 11/24/21 04:20 AST 44 Units/L (15-37) H 11/24/21 04:20 ALT 28 Units/L (12-78) 11/24/21 04:20 Alkaline Phosphatase 104 Units/L (46-116) 11/24/21 04:20 Total Protein 5.5 g/dL (6.4-8.2) L 11/24/21 04:20 Albumin 2.1 g/dL (3.4-5.0) L 11/24/21 04:20 Globulin 3.4 g/dL (2.5-4.5) 11/24/21 04:20 Albumin/Globulin Ratio 0.6 Ratio (1.1-2.1) L 11/24/21 04:20 Tissue Pathology To follow 11/21/21 13:19 Blood Type B POSITIVE 11/21/21 09:00 Antibody Screen Negative 11/21/21 09:00 Crossmatch See Detail 11/21/21 09:00 Reason For Visit: ABDOMINAL AORTIC ANEURYSM, BILATERAL COMMON ILIAC Discharge Date Discharge Date: 11/25/21 Discharge Diagnosis All Active Problems (Updated 11/21/21 @ 15:24 by Kenyon Glaser) Bilateral iliac artery aneurysm (Acute) Abdominal aortic aneurysm (AAA) greater than 5.0 cm in diameter in female (Acute) Plan of Treatment: Continue with present treatment and follow up plan. Pt is to have follow up appointment on 11/29/2021 as instructed and take medications as ordered. Discharge Medications Discharge Medications: Penicillins Allergy (Mild, Verified 09/07/20 09:14) RASH CONTINUE taking the following medications clopidogrel 75 mg tablet 1 tab PO QDAY 11/21/21 [History] furosemide 40 mg tablet 1 tab PO QDAY 11/21/21 [History] hydrocodone 10 mg-acetaminophen 325 mg tablet 1 tab PO TID PRN 11/21/21 [History] labetalol 100 mg tablet 100 mg PO TID 11/21/21 [History] labetalol 300 mg tablet 300 mg PO TID 11/21/21 [History] linaclotide 72 mcg capsule (Linzess) 1 cap PO QAM 11/21/21 [History] omeprazole 20 mg capsule,delayed release 1 cap PO QDAY 11/21/21 [History] spironolactone 50 mg tablet 1 tab PO QDAY 11/21/21 [History] Discharge Disposition Assessment: see summary as above Discharge Disposition: home Discharge Condition: good Discharge Plan Discharge Plan Hospital Course: 76 year old female with history of coronary artery disease who has had a bilateral peripheral artery interventions of both lower extremities for rest pain and she was noted to have a 4. 4 CM abdominal aortic aneurysm, 3. 1 CM left common iliac artery aneurysm and 2. 3 CM right common iliac artery aneurysm. After evaluation of her coronary artery disease and arterial intervention of both legs she was admitted on November 21 where she underwent an uncomplicated aorta bi-iliac endovascular repair via incisions in each groin . She has a history of hypertension which has been difficult to control and has had borderline renal function in the past. Post-procedure her creatinine increased to 3. 9 but it is coming down with re-hydration and is now 3.7. Other chemistries are within normal limits. Her hemoglobin dropped post- procedure slowly over several days to 7. 2 No obvious signs of bleeding .She received 2 units of packed RBCs and her Hgb is 10.1 on discharge. She has b een getting around with a walker and has been instructed with physical therapy. She will be discharged to home and follow up with me on November 29. At that time we will repeat laboratory values to evaluate her kidneys and her hemoglobin. She be discharged home on her usual medications including Plavix, her blood pressure medicines, daily baby aspirin and Percocet 5 mg tablets, one every six hours pure in pain. Patient Disposition: 01 HOME, SELF-CARE Condition: Stable Health Concerns: Post Hospitalization: new medications and changes needed to prevent readmission or further decline. Pt educated and given instructions on all concerns. Care Plan Goals: Problem: Cardiac Complications Goal: Early Recognition of cardiac complications for prompt intervention Instructions: Follow provided instructions. Follow up with primary physician as directed. Contact primary care physician or report to the closest Emergency Room if condition worsens. Problem: Infection Goal: Temperature within normal limits. Resolved infection. Instructions: Follow provided instructions. Follow up with primary physician as directed. Contact primary care physician or report to the closest Emergency Room if condition worsens. Plan of Treatment: Continue with present treatment and follow up plan. Pt is to have follow up appointment on 11/29/2021 as instructed and take medications as ordered. Assessment: see summary as above Prescriptions: Continued furosemide 40 mg tablet 1 tab PO QDAY clopidogrel 75 mg tablet 1 tab PO QDAY hydrocodone-acetaminophen 10-325 mg tablet 1 tab PO TID PRN labetalol 300 mg tablet 300 mg PO TID labetalol 100 mg tablet 100 mg PO TID spironolactone 50 mg tablet 1 tab PO QDAY Linzess 72 mcg capsule 1 cap PO QAM omeprazole 20 mg capsule,delayed release(DR/EC) 1 cap PO QDAY Follow ups/Referrals Follow ups/Referrals: Kenyon Glaser [STAFF PHYSICIAN] - 1 WEEK Instructions Instructions: Abdominal Aortic Aneurysm, [id number], Fall Prevention in the Home, Adult, [id number], Hypertension, Adult, [id number], Abdominal Aortic Aneurysm Endograft Repair, Care After Stand Alone Forms: Precautions for [address] [facility], Patient Portal, Social Distancing Patient Education Addl Reference Links: Abdominal Aortic Aneurysm [email or web address] uage=en&patientPerson.administrativeGenderCode.c=F&patientPerson.administrativeG enderCode.dn=Female&age.v.v=76&age.v.u=a &performer=PROV&informationRecipient=PAT&performer.languageCode.c=en&mainSearchC riteria.v.dn=Abdominal%2BAortic%2BAneurysm&[id number] c
[2021-11-25] MEDS ORDERED: COLACE CAP 100 MG PO SCH (21:00)
== END 2021-11-25 12:30 | disposition home or self-care (01) | DRG 301 ==
LOC: ICU
PROVIDERS: ADMIT Surgery; ATTEND Surgery
DX: I10 Essential (primary) hypertension; I72.4 Aneurysm of artery of lower extremity; I71.4 Abdominal aortic aneurysm, without rupture; R26.89 Other abnormalities of gait and mobility; I72.3 Aneurysm of iliac artery